=== PATIENT | female | born 1950 | race Hispanic/Latino ===

== ENCOUNTER 2020-07-20 09:06 | Emergency (ER) | payer MEDICARE ==
[~2020-07-20] VITALS: Ht 121.9 cm; Wt 62.6 kg
[2020-07-20 10:03] LABS: BASOPHILS # (AUTO) 0.1 (0.0-0.1); BASOPHILS % 0.5 % (0.0-1.0); EOSINOPHILS # (AUTO) 0.2 (0.0-0.4); EOSINOPHILS % 2.4 % (0.0-6.0); HEMATOCRIT 40.7 % (34.2-44.1); HEMOGLOBIN 13.1 g/dL (12.0-16.0); LYMPHOCYTES # (AUTO) 2.9 (1.0-3.2); LYMPHOCYTES % 30.4 % (18.0-39.1); MEAN CORPUSCULAR HEMOGLOBIN 28.1 pg (28-32); MEAN CORPUSCULAR HGB CONC 32.2 g/dL (31-35); MEAN CORPUSCULAR VOLUME 87.3 fL (81-99); MONOCYTES # (AUTO) 0.4 (0.2-0.8); MONOCYTES % 4.5 % (4.4-11.3); NEUTROPHILS # (AUTO) 5.9 (2.1-6.9); NEUTROPHILS % 61.8 % (38.7-80.0); PLATELET COUNT 300 x10e3/uL (140-360); RED BLOOD COUNT 4.66 x10e6/uL (3.6-5.1); RED CELL DISTRIBUTION WIDTH 13.9 % (11.7-14.4)
[2020-07-20] MEDS ORDERED: LABETALOL HCL 5 MG/ML 20ML VIAL IV STA (10:14)
[2020-07-20] MEDS ORDERED: NITROGLYCERIN 2% OINT 1 GM PKT TOP ONE (10:15)
[2020-07-20] MEDS ORDERED: LISINOPRIL10 MG PO (10:28)
[2020-07-20] MEDS ORDERED: ASPIRIN EC81 MG PO (10:28)
[2020-07-20] MEDS ORDERED: LIPITOR20 MG PO (10:28)
[2020-07-20] MEDS ORDERED: NITROGLYCERIN 2% OINT 1 GM PKT ONE (10:31)
[2020-07-20 13:03] VITALS: BP 131/66
== END 2020-07-20 13:02 | disposition other institution (70) ==
LOC: FSED 09:35
DX: R07.89 Other chest pain (principal); M79.622 Pain in left upper arm; I25.10 Atherosclerotic heart disease of native coronary artery without angina pectoris; I10 Essential (primary) hypertension; E78.5 Hyperlipidemia, unspecified; I25.2 Old myocardial infarction; Z95.5 Presence of coronary angioplasty implant and graft; Z20.822 Contact with and (suspected) exposure to COVID-19
CPT/HCPCS: 36415; 71046; 80048; 80076; 81003; 82553; 83880; 84484; 85025; 96374; 99284; J3490; U0002